=== PATIENT | male | born 1965 | race Caucasian/White ===

== ENCOUNTER 2021-12-22 11:49 | Emergency (ER) | payer BC ==
[2021-12-22] MEDS ORDERED: Sodium Chloride 0.9% 10 ML Syringe FLUSH PRN ×2 (11:59→12:51)
[2021-12-22] MEDS ORDERED: Sodium Chloride 0.9% 1,000 ML IV STA (12:40)
[2021-12-22] MEDS ORDERED: Iopamidol 612 MG/ML 100 ML Bottle IVPUSH ONE (12:51)
[2021-12-22 13:06] LABS: CORONAVIRUS COVID-19 NAA POSITIVE (NEGATIVE)
[2021-12-22] MEDS ORDERED: diphenhydrAMINE 50 MG/ML SDV IVPUSH PRN (14:42)
[2021-12-22] MEDS ORDERED: methylPREDNISolone Sodium Succinate 125 MG/2 ML SDV IVPUSH PRN (14:42)
[2021-12-22] MEDS ORDERED: Famotidine 20 MG/2 ML SDV IVPUSH PRN (14:42)
[2021-12-22] MEDS ORDERED: EPINEPHrine 1 MG/ML SDV IM PRN (14:42)
[2021-12-22] MEDS ORDERED: Sodium Chloride 0.9% 10 ML Syringe FLUSH SCH (14:45)
[2021-12-22 17:48] VITALS: BP 117/91; PULSE 94
== END 2021-12-22 17:05 | disposition home or self-care (01) ==
LOC: JD.ED 11:49
DX: U07.1 COVID-19 (principal); Z88.1 Allergy status to other antibiotic agents
CPT/HCPCS: 0240U; 36415; 71046; 71275; 74177; 80053; 81001; 83605; 85025; 85379; 86140; 87040; 93005; 99284; J3490; J7030; M0222; Q0222; Q9967